=== PATIENT | male | born 1940 | race Caucasian/White ===

== ENCOUNTER 2024-07-28 09:50 | Emergency (ER) | payer MEDICARE ==
[2024-07-28] MEDS ORDERED: Sodium Chloride 0.9% 10 ML Syringe FLUSH PRN (10:02)
[2024-07-28 10:13] LABS: HEMATOCRIT 42.7 % (40.0-52.0); HEMOGLOBIN 13.9 g/dL (13.0-17.0); MEAN CORPUSCULAR HEMOGLOBIN 29.5 pg (27.0-31.0); MEAN CORPUSCULAR HGB CONC 32.6 g/dL (32.0-36.0); MEAN CORPUSCULAR VOLUME 90.7 fL (82.0-92.0); MEAN PLATELET VOLUME 10.3 fL (7.4-10.4); PLATELET COUNT,PLT 216 10^3/uL (150-400); RED BLOOD CELL COUNT 4.71 10^6/uL (4.50-6.00); RED CELL DISTRIBUTION WIDTH 12.4 % (11.5-14.5); WHITE BLOOD CELL COUNT,WBC 16.92 10^3/uL (5.00-10.00)
[2024-07-28] MEDS: Nitroglycerin 2% Oint 1 GM UD Packet TOP ONE (10:31)
[2024-07-28 10:32] LABS: INR 1.1 (0.9-1.1); PROTHROMBIN TIME 11.6 SEC (9.3-12.2); PTT,PARTIAL THROMBOPLSTIN TIME 33.9 SEC (23.3-34.9)
[2024-07-28 10:39] LABS: ALBUMIN 2.47 g/dL (3.40-5.00); BILIRUBIN TOTAL 0.8 mg/dL (0.2-1.0); CALCIUM 8.6 mg/dL (8.7-10.3); CREATININE 1.5 mg/dL (0.51-1.17); EST CRCL DRUG DOSING (CG) 39.52 mL/min; PROTEIN TOTAL,TP 7.5 g/dL (6.4-8.2)
[2024-07-28 10:40] LABS: ANION GAP 9.4 mmol/L (5-15)
[2024-07-28 10:44] LABS: POTASSIUM,K 5.4
[2024-07-28 10:48] LABS: BAND PERCENT MAN 2 % (4-12); LYMPHOCYTES ABSOLUTE MAN 0.6768; LYMPHOCYTES PERCENT MAN 4 % (20-40); MONOCYTES ABSOLUTE MAN 1.1844; MONOCYTES PERCENT MAN 7 % (2-8); NEUTROPHILS ABSOLUTE MAN 15.0588; SEG NEUTROPHILS PERCENT MAN 87 % (50-70)
[2024-07-28] MEDS: Aspirin 81 MG Tab.Chew PO ONE (11:05)
[2024-07-28] MEDS: Heparin Sodium 5,000 Units/ML Vial IVPUSH ONE (11:07)
[2024-07-28] MEDS: Heparin Sodium/D5W 250 ML IV SCH (11:13)
[2024-07-28 11:19] VITALS: BP 93/69; PULSE 69
[2024-07-28] MEDS: Sodium Chloride 0.9% 1,000 ML IV ONE (11:26)
== END 2024-07-28 11:35 ==
LOC: KA.ED 09:50
DX: I21.3 ST elevation (STEMI) myocardial infarction of unspecified site (principal); I25.9 Chronic ischemic heart disease, unspecified; R47.81 Slurred speech; R41.0 Disorientation, unspecified; I25.10 Atherosclerotic heart disease of native coronary artery without angina pectoris; I10 Essential (primary) hypertension; M10.9 Gout, unspecified; E11.9 Type 2 diabetes mellitus without complications; Z88.0 Allergy status to penicillin; Z79.82 Long term (current) use of aspirin; Z79.899 Other long term (current) drug therapy
CPT/HCPCS: 70450; 71045; 80053; 84484; 85025; 85610; 85730; 93005; 93010; 96365; 99284; 99285-25; A9270-GY; J1644; J7030

== ENCOUNTER 2024-08-05 08:22 | Emergency (ER) | payer MEDICARE ==
[2024-08-05 08:55] LABS: BASOPHILS ABSOLUTE AUTO 0.05 10^3/uL (0.00-0.10); BASOPHILS PERCENT AUTO 0.7 % (0.0-1.0); EOSINOPHILS PERCENT AUTO 2.7 % (1.0-3.0); HEMATOCRIT 42.1 % (40.0-52.0); HEMOGLOBIN 13.8 g/dL (13.0-17.0); IMMATURE GRAN ABSOLUTE AUTO 0.47 10^3/uL (0.00-0.04); IMMATURE GRAN PERCENT AUTO 6.2 % (0.0-0.4); LYMPHOCYTES ABSOLUTE AUTO 1.15 10^3/uL (1.00-4.00); LYMPHOCYTES PERCENT AUTO 15.3 % (20.0-40.0); MEAN CORPUSCULAR HEMOGLOBIN 29.1 pg (27.0-31.0); MEAN CORPUSCULAR HGB CONC 32.8 g/dL (32.0-36.0); MEAN CORPUSCULAR VOLUME 88.8 fL (82.0-92.0); MONOCYTES ABSOLUTE AUTO 1.03 10^3/uL (0.10-0.80); MONOCYTES PERCENT AUTO 13.7 % (2.0-8.0); NEUTROPHILS ABSOLUTE AUTO 4.64 10^3/uL (2.50-7.00); NEUTROPHILS PERCENT AUTO 61.4 % (50.0-70.0); PLATELET COUNT,PLT 225 10^3/uL (150-400); RED BLOOD CELL COUNT 4.74 10^6/uL (4.50-6.00); RED CELL DISTRIBUTION WIDTH 12.1 % (11.5-14.5); WHITE BLOOD CELL COUNT,WBC 7.54 10^3/uL (5.00-10.00)
[2024-08-05 09:01] LABS: HCO3 ARTERIAL,POC 23.7 mmol/L (21-28); PCO2 ARTERIAL,POC 41 mmHg (35-48); PH ARTERIAL,POC 7.37 pH (7.35-7.45); PO2 ARTERIAL,POC 58 mmHg (83-108)
[2024-08-05 09:20] LABS: ALBUMIN 2.37 g/dL (3.40-5.00); ANION GAP 16.2 mmol/L (5-15); BILIRUBIN TOTAL 0.6 mg/dL (0.2-1.0); C-REACTIVE PROTEIN 5.78 mg/dL (0.00-0.50); CALCIUM 8.5 mg/dL (8.7-10.3); CARBON DIOXIDE,CO2 23.9 mmol/L (21.0-32.0); CREATININE 1.33 mg/dL (0.51-1.17); EST CRCL DRUG DOSING (CG) 44.57 mL/min; POTASSIUM,K 4.1 mmol/L (3.5-5.1)
[2024-08-05] MEDS: Cyclobenzaprine 10 MG Tab PO ONE (10:36)
== END 2024-08-05 14:18 ==
LOC: KA.ED 08:22
DX: R07.9 Chest pain, unspecified (principal); R09.02 Hypoxemia; Z86.69 Personal history of other diseases of the nervous system and sense organs; Z86.79 Personal history of other diseases of the circulatory system; I10 Essential (primary) hypertension; I25.2 Old myocardial infarction; E11.9 Type 2 diabetes mellitus without complications; Z88.0 Allergy status to penicillin; Z79.82 Long term (current) use of aspirin; Z79.899 Other long term (current) drug therapy
CPT/HCPCS: 36415; 36600; 71045; 80053; 82803; 83880; 84484; 85025; 86140; 99285; A9270-GY

== ENCOUNTER 2024-08-08 07:45 | Emergency (ER) | payer MEDICARE ==
[2024-08-08 08:07] LABS: BASOPHILS ABSOLUTE AUTO 0.05 10^3/uL (0.00-0.10); BASOPHILS PERCENT AUTO 0.5 % (0.0-1.0); HEMATOCRIT 42.1 % (40.0-52.0); HEMOGLOBIN 13.4 g/dL (13.0-17.0); IMMATURE GRAN ABSOLUTE AUTO 0.18 10^3/uL (0.00-0.04); IMMATURE GRAN PERCENT AUTO 1.8 % (0.0-0.4); LYMPHOCYTES ABSOLUTE AUTO 1.37 10^3/uL (1.00-4.00); LYMPHOCYTES PERCENT AUTO 13.8 % (20.0-40.0); MEAN CORPUSCULAR HGB CONC 31.8 g/dL (32.0-36.0); MEAN CORPUSCULAR VOLUME 91.1 fL (82.0-92.0); MEAN PLATELET VOLUME 10.2 fL (7.4-10.4); MONOCYTES ABSOLUTE AUTO 1.67 10^3/uL (0.10-0.80); MONOCYTES PERCENT AUTO 16.9 % (2.0-8.0); NEUTROPHILS ABSOLUTE AUTO 6.53 10^3/uL (2.50-7.00); PLATELET COUNT,PLT 213 10^3/uL (150-400); RED BLOOD CELL COUNT 4.62 10^6/uL (4.50-6.00); RED CELL DISTRIBUTION WIDTH 12.9 % (11.5-14.5)
[2024-08-08] MEDS: Sodium Chloride 0.9% 250 ML IV ONE (08:12)
[2024-08-08 08:18] LABS: ALANINE AMINOTRANSFERASE,ALT 26 U/L (14-63); ALBUMIN 2.16 g/dL (3.40-5.00); ALKALINE PHOSPHATASE 115 U/L (46-116); ANION GAP 15.5 mmol/L (5-15); ASPARTATE AMNIOTRANSFERASE,AST 55 U/L (15-37); BILIRUBIN TOTAL 0.4 mg/dL (0.2-1.0); C-REACTIVE PROTEIN 15.74 mg/dL (0.00-0.50); CALCIUM 8.2 mg/dL (8.7-10.3); CARBON DIOXIDE,CO2 24.4 mmol/L (21.0-32.0); CHLORIDE,CL 100 mmol/L (98-107); CREATININE 5.59 mg/dL (0.51-1.17); GLUCOSE RANDOM 115 mg/dL (70-140); POTASSIUM,K 4.9 mmol/L (3.5-5.1); PROTEIN TOTAL,TP 7.7 g/dL (6.4-8.2); SODIUM,NA 135 mmol/L (136-145)
[2024-08-08 08:20] LABS: ESTIMATED GFR 9 mL/min (>=60)
[2024-08-08 08:21] LABS: BLOOD UREA NITROGEN,BUN 54 mg/dL (7-18)
[2024-08-08 08:32] LABS: B-TYPE NATRIURETIC PEPTIDE,BNP 198 pg/mL (0-100)
[2024-08-08 08:35] LABS: APPEARANCE,URINE CLEAR (CLEAR); BILIRUBIN,URINE SMALL (NEGATIVE); COLOR,URINE DARK YELLOW (YELLOW); GLUCOSE,URINE NEGATIVE (NEGATIVE); KETONES,URINE NEGATIVE (NEGATIVE); LEUKOCYTE ESTERASE,URINE NEGATIVE (NEGATIVE); NITRITE,URINE NEGATIVE (NEGATIVE); OCCULT BLOOD,URINE NEGATIVE (NEGATIVE); PROTEIN,URINE 100 mg/dL (NEGATIVE); UROBILINOGEN,URINE 0.2 E.U./dL (0.2-1.0)
[2024-08-08] MEDS: Sodium Chloride 0.9% 1,000 ML ONE (08:43)
[2024-08-08 08:48] LABS: BACTERIA,URINE RARE /HPF (NONE TO FEW); EPITHELIAL CELLS,URINE RARE /LPF; RBC,URINE 0-5 /HPF (0-5); WBC,URINE 0-5 /HPF (0-5)
[2024-08-08 08:49] LABS: AMORPHOUS SEDIMENT,URINE RARE /HPF (0/HPF)
[2024-08-08 08:56] LABS: INFLUENZA A NAA NEGATIVE (NEGATIVE); INFLUENZA B NAA NEGATIVE (NEGATIVE); RESPIRATORY SYNCYTIAL VIR NAA NEGATIVE (NEGATIVE)
[2024-08-08 08:57] LABS: CORONAVIRUS COVID-19 NAA NEGATIVE (NEGATIVE)
[2024-08-08] MEDS: Sodium Chloride 0.9% 1,000 ML IV ONE (09:43)
[2024-08-08 09:57] LABS: ALBUMIN 2.17 g/dL (3.40-5.00); ANION GAP 14.6 mmol/L (5-15); BILIRUBIN TOTAL 0.5 mg/dL (0.2-1.0); CALCIUM 8.1 mg/dL (8.7-10.3); CARBON DIOXIDE,CO2 26.5 mmol/L (21.0-32.0); CREATININE 5.67 mg/dL (0.51-1.17); EST CRCL DRUG DOSING (CG) 10.76 mL/min; POTASSIUM,K 5.1 mmol/L (3.5-5.1); PROTEIN TOTAL,TP 7.3 g/dL (6.4-8.2)
[2024-08-08] MEDS: Sodium Chloride 0.9% 50 ML ONE (11:00)
[2024-08-08] MEDS: Sodium Zirconium Cyclosilicate 10 GM Packet PO STA (11:00)
[2024-08-08] MEDS: Cefepime 1 GM Vial IVPUSH ONE (11:00)
== END 2024-08-08 11:10 ==
LOC: KA.ED 07:45
DX: J18.9 Pneumonia, unspecified organism (principal); N19 Unspecified kidney failure; I11.0 Hypertensive heart disease with heart failure; I50.9 Heart failure, unspecified; I25.10 Atherosclerotic heart disease of native coronary artery without angina pectoris; E11.9 Type 2 diabetes mellitus without complications; Z88.0 Allergy status to penicillin; Z79.82 Long term (current) use of aspirin; Z79.899 Other long term (current) drug therapy
CPT/HCPCS: 0241U; 36415; 51702; 71045; 80053; 81001; 83605; 83880; 85025; 86140; 93010; 96361; 96374; 99284; 99285-25; A9270-GY; J0692; J7030

== ENCOUNTER 2024-09-13 10:47 | Emergency (ER) | payer MEDICAID, MEDICARE ==
[2024-09-13 11:25] LABS: HEMATOCRIT 41.9 % (40.0-52.0); HEMOGLOBIN 13.7 g/dL (13.0-17.0); MEAN CORPUSCULAR HGB CONC 32.7 g/dL (32.0-36.0); MEAN CORPUSCULAR VOLUME 88.6 fL (82.0-92.0); MEAN PLATELET VOLUME 10.4 fL (7.4-10.4); PLATELET COUNT,PLT 109 10^3/uL (150-400); RED BLOOD CELL COUNT 4.73 10^6/uL (4.50-6.00); WHITE BLOOD CELL COUNT,WBC 7.96 10^3/uL (5.00-10.00)
[2024-09-13 11:45] LABS: ALBUMIN 2.25 g/dL (3.40-5.00); ANION GAP 8.2 mmol/L (5-15); BILIRUBIN TOTAL 0.6 mg/dL (0.2-1.0); C-REACTIVE PROTEIN 0.71 mg/dL (0.00-0.50); CALCIUM 8.3 mg/dL (8.7-10.3); CARBON DIOXIDE,CO2 30.9 mmol/L (21.0-32.0); CREATININE 0.75 mg/dL (0.51-1.17); EST CRCL DRUG DOSING (CG) 77.6 mL/min; POTASSIUM,K 4.1 mmol/L (3.5-5.1); PROTEIN TOTAL,TP 5.9 g/dL (6.4-8.2)
[2024-09-13 11:54] LABS: BAND PERCENT MAN 2 % (4-12); BASOPHILS PERCENT MAN 0 % (0-1); BLASTS PERCENT MAN 0; EOSINOPHILS PERCENT MAN 0 % (1-3); IMMATURE MONOCYTES PERCENT MAN 0; LYMPHOCYTES PERCENT MAN 22 % (20-40); METAMYELOCYTE PERCENT MAN 0; MONOCYTES PERCENT MAN 8 % (2-8); MYELOCYTE PERCENT MAN 0; NRBC MANUAL 0; PLASMA CELL PERCENT MAN 0; PROMYELOCYTE PERCENT MAN 0; SEG NEUTROPHILS PERCENT MAN 68 % (50-70); SLIDE REVIEW YES
[2024-09-13 11:56] LABS: ATYPICAL LYMPHOCYTES MODERATE; GIANT PLATELETS FEW; PLATELET COUNT ESTIMATE DECREASED
[2024-09-13 11:57] LABS: LYMPHOCYTES % ATYPICAL MANUAL 0; SMUDGE CELLS FEW
[2024-09-13 12:58] VITALS: PULSE 70
[2024-09-13 13:04] VITALS: BP 155/79
== END 2024-09-13 13:58 ==
LOC: KA.ED 10:47
DX: R07.89 Other chest pain (principal); G89.29 Other chronic pain; M54.6 Pain in thoracic spine; I48.91 Unspecified atrial fibrillation; I25.10 Atherosclerotic heart disease of native coronary artery without angina pectoris; I11.0 Hypertensive heart disease with heart failure; I50.9 Heart failure, unspecified; E11.9 Type 2 diabetes mellitus without complications; I25.2 Old myocardial infarction; Z88.0 Allergy status to penicillin; Z79.82 Long term (current) use of aspirin; Z79.899 Other long term (current) drug therapy
CPT/HCPCS: 36415; 71045; 80053; 83880; 84484; 85025; 86140; 99285

== ENCOUNTER 2024-09-18 19:07 | Emergency (ER) | payer MEDICARE ==
[2024-09-18 19:54] LABS: HEMOGLOBIN 12.8 g/dL (13.0-17.0); MEAN CORPUSCULAR HEMOGLOBIN 28.8 pg (27.0-31.0); MEAN CORPUSCULAR VOLUME 89.9 fL (82.0-92.0); MEAN PLATELET VOLUME 10.6 fL (7.4-10.4); PLATELET COUNT,PLT 119 10^3/uL (150-400); RED BLOOD CELL COUNT 4.45 10^6/uL (4.50-6.00); RED CELL DISTRIBUTION WIDTH 14.2 % (11.5-14.5); WHITE BLOOD CELL COUNT,WBC 5.86 10^3/uL (5.00-10.00)
[2024-09-18] MEDS: Morphine 2 MG/ML SYRINGE IVPUSH ONE (20:04)
[2024-09-18 20:11] LABS: ANION GAP 11.7 mmol/L (5-15); C-REACTIVE PROTEIN 2.48 mg/dL (0.00-0.50); CALCIUM 8.3 mg/dL (8.7-10.3); CARBON DIOXIDE,CO2 27.6 mmol/L (21.0-32.0); CREATININE 0.92 mg/dL (0.51-1.17); EST CRCL DRUG DOSING (CG) 63.26 mL/min; POTASSIUM,K 5.3 mmol/L (3.5-5.1)
[2024-09-18 20:19] LABS: APPEARANCE,URINE CLEAR (CLEAR); BILIRUBIN,URINE NEGATIVE (NEGATIVE); COLOR,URINE YELLOW (YELLOW); GLUCOSE,URINE >=1000 mg/dL (NEGATIVE); KETONES,URINE NEGATIVE (NEGATIVE); LEUKOCYTE ESTERASE,URINE NEGATIVE (NEGATIVE); NITRITE,URINE NEGATIVE (NEGATIVE); OCCULT BLOOD,URINE NEGATIVE (NEGATIVE); PROTEIN,URINE 30 mg/dL (NEGATIVE)
[2024-09-18 20:19] LABS: BAND PERCENT MAN 2 % (4-12); BASOPHILS PERCENT MAN 0 % (0-1); EOSINOPHILS PERCENT MAN 0 % (1-3); LYMPHOCYTES PERCENT MAN 30 % (20-40); MONOCYTES PERCENT MAN 8 % (2-8); REACTIVE LYMPHOCYTES FEW; SEG NEUTROPHILS PERCENT MAN 60 % (50-70); SLIDE REVIEW YES; SMUDGE CELLS FEW
[2024-09-18 20:20] LABS: GIANT PLATELETS FEW
[2024-09-18 20:22] LABS: INR 1.1 (0.9-1.1); PROTHROMBIN TIME 11.1 SEC (9.1-12.0); PTT,PARTIAL THROMBOPLSTIN TIME 27.6 SEC (21.6-32.4)
[2024-09-18 20:24] LABS: BACTERIA,URINE RARE /HPF (NONE TO FEW); EPITHELIAL CELLS,URINE RARE /LPF; RBC,URINE 0-5 /HPF (0-5); WBC,URINE 0-5 /HPF (0-5)
[2024-09-18] MEDS: Sodium Chloride 0.9% 1,000 ML IV ONE (20:48)
[2024-09-18] MEDS ORDERED: Glucagon,Human Recombinant 1 MG Vial IM PRN (21:00)
[2024-09-18] MEDS ORDERED: 50% Dextrose in Water 50 ML Syringe IVPUSH PRN (21:00)
[2024-09-18] MEDS: Insulin Regular, Human 100 Units/ML 10 ML Vial IV ONE (21:09)
== END 2024-09-18 22:10 ==
LOC: KA.ED 19:07
DX: I30.9 Acute pericarditis, unspecified (principal); E11.65 Type 2 diabetes mellitus with hyperglycemia; I48.91 Unspecified atrial fibrillation; I25.10 Atherosclerotic heart disease of native coronary artery without angina pectoris; I25.2 Old myocardial infarction; I11.0 Hypertensive heart disease with heart failure; I50.9 Heart failure, unspecified; K21.9 Gastro-esophageal reflux disease without esophagitis; Z88.0 Allergy status to penicillin; Z79.82 Long term (current) use of aspirin; Z79.01 Long term (current) use of anticoagulants; Z79.52 Long term (current) use of systemic steroids; Z79.899 Other long term (current) drug therapy
CPT/HCPCS: 36415; 71045; 80048; 81001; 82550; 82947; 83880; 84484; 85025; 85610; 85730; 86140; 93005; 93010; 96361; 96374; 99284; 99285-25; A9270-GY; J2270; J7030